=== PATIENT | female | born 1995 | race Caucasian/White ===

== ENCOUNTER 2017-02-24 14:30 | Emergency (ER) | payer MEDICAID ==
[~2017-02-24] VITALS: Ht 170.2 cm; Wt 72.6 kg
[2017-02-24 14:42] VITALS: BP 105/72
--- NOTE | 2017-02-24 14:49 | NUR ---
pt states noted heavy clots upon voiding
--- NOTE | 2017-02-24 19:44 | NUR ---
PATIENT LEFT WITHOUT BEING SEEN BY DR. GUO. NO FURTHER CARE PROVIDED FOR PATIENT.
== END 2017-02-24 19:44 | disposition left against medical advice (07) ==
LOC: MED 14:30
DX: N93.9 Abnormal uterine and vaginal bleeding, unspecified (principal); Z53.21 Procedure and treatment not carried out due to patient leaving prior to being seen by health care provider